=== PATIENT | female | born 1970 | race Caucasian/White ===

== ENCOUNTER 2021-01-27 13:16 | Emergency (ER) | payer BC, SELFPAY ==
[2021-01-27 13:17] VITALS: BP 157/97; PULSE 82; RESP 16; TEMP 36.7; O2SAT 98; BMI 37.0
--- NOTE | 2021-01-27 13:53 | RAD_ITS ---
HISTORY: Injury/Pain ADDITIONAL HISTORY: None provided. EXAMINATION/TECHNIQUE: XR Hip Unilateral with Pelvis when performed; 2-3 Views Left Number of images including paperwork: 3 COMPARISON: None FINDINGS: BONES: No acute fracture. JOINTS: No subluxation. SOFT TISSUES: No distinct foreign body. RAD/HIP, UNI W/ Pelvis 2-3 Views IMPRESSION: No acute osseous abnormality. at 1457 Reported and signed by: Rosa Coyne MD Electronically Signed: Rosa Coyne MD at 14:57 EDT Tel , Service support ,
--- NOTE | 2021-01-27 13:57 | ED.DCSUM_ITS ---
- ER Visit Summary Date of Service: 01/27/21 Chief Complaint: Fall History of Present Illness: The patient is a 50 F who presents after a fall that occurred today. Patient states she tripped while coming into the hospital to visit her mother. Patient states she fell forward and landed on her right side. Patient states she hit her head but denies any loss of consciousness. Patient also complains of left hip pain. Patient is unsure why she has left hip pain when she fell on her right. Patient describes her pain as aching. Patient denies any paresthesias or weakness. Patient is unsure of her last tetanus. Physical Examination: Vital signs are stable. Patient is afebrile. Patient is in no acute distress. Cranial nerves II through XII are intact. There are no focal motor or sensory deficits noted. Skin is warm dry. There is a superficial 0.5 cm laceration over the lateral aspect of the right eyebrow. There is no active bleeding noted. There is no bony crepitance or step-off. Pupils are equal, round, and reactive to light bilaterally. Extraocular muscles are intact. Conjunctiva is clear. Neck is supple. Trachea is midline. There is no cervical spine or paraspinal tenderness. Heart was regular rate and rhythm. Lungs are clear and equal bilaterally. There is no chest wall tenderness. Abdomen is soft. Bowel sounds are normal. There is no abdominal tenderness. There is no rebound or guarding noted. Musculoskeletal exam reveals some mild tenderness over the posterior aspect of the left hip. There is no deformity. There is no pain with internal and external rotation. Test Results: X-rays of the left hip were obtained. There are 3 views. On my interpretation, there is no acute fracture or dislocation. There is no pubic rami fracture noted. There is no pelvic fracture noted. Radiologist also interpreted the x-ray and agrees. Emergency Department Course and Treatment: The wound was cleaned with chlorhexidine. The wound was closed with Dermabond skin adhesive. Patient tolerated the procedure well. Patient was instructed to avoid bacitracin, Neosporin, or Vaseline-based ointments. Patient was instructed to take Tylenol or ibuprofen as needed for pain. Patient was instructed to follow-up with her primary care physician in 5 to 7 days. Patient understood and was agreeable with the plan. All questions were answered. Disposition: Discharge home Impression: 1. Forehead laceration 2. Closed head injury 3. Left hip strain This note was generated with [employer] dictation software. It may contain incorrect words, spelling, and punctuation that were not noted in review of the chart prior to signing ED Disposition - Plan for ED Patient: Disposition: Home or Assisted Living Diagnosis: Forehead laceration, Closed head injury, Strain of left hip Instructions: ED Head Injury (Adult), ED Laceration, Face: Skin Glue Referrals: NOT,DEFINED [NON-STAFF] - 5-7 Days
[2021-01-27 15:16] VITALS: BP 156/110; PULSE 82; RESP 16
== END 2021-01-27 15:17 | disposition home or self-care (01) ==
PROVIDERS: Emergency Provider Emergency Medicine
DX: S01.81XA Laceration without foreign body of other part of head, initial encounter (principal); S76.012A Strain of muscle, fascia and tendon of left hip, initial encounter; W01.0XXA Fall on same level from slipping, tripping and stumbling without subsequent striking against object, initial encounter; Y93.01 Activity, walking, marching and hiking; Y92.239 Unspecified place in hospital as the place of occurrence of the external cause; Y99.8 Other external cause status; E66.9 Obesity, unspecified; Z68.37 Body mass index [BMI] 37.0-37.9, adult
CPT/HCPCS: 12011; 73502; 99282